=== PATIENT | male | born 1990 | race Caucasian/White ===

== ENCOUNTER 2017-03-19 12:37 | Emergency (ER) | payer BC ==
[2017-03-19 12:58] VITALS: BP 125/64
--- NOTE | 2017-03-19 13:07 | UC ---
Lower Extremity/Ankle HPI - HPI Summary HPI Summary: Twisted L ankle playing basketball 2 days ago. Having lots of medial pain and swelling since then; denies prior sx or fx. Having a lot of difficulty bearing weight. - History of Current Complaint Chief Complaint: UCLowerExtremity Stated Complaint: LEFT ANKLE INJURY Time Seen by Provider: 03/19/17 12:44 Hx Obtained From: Patient Onset/Duration: Sudden Onset Severity Initially: Moderate Severity Currently: Moderate Aggravating Factor(s): Standing, Ambulation Alleviating Factor(s): Rest Able to Bear Weight: Yes - with difficulty - Allergies/Home Medications Allergies/Adverse Reactions: Allergies Allergy/AdvReac Type Severity Reaction Status Date / Time No Known Allergies Allergy Verified 03/19/17 12:50 PMH/Surg Hx/FS Hx/Imm Hx Previously Healthy: Yes - Surgical History Surgical History: Yes Surgery Procedure, Year, and Place: LEFT eye surgery- scar tissue removed 2015 - Family History Known Family History: Positive: Hypertension - Social History Occupation: Employed Full-time - snf Alcohol Use: Occasionally Alcohol Amount: 2 times a week Substance Use Type: None Smoking Status (MU): Never Smoked Tobacco - Immunization History Most Recent Influenza Vaccination: NONE 2015 Most Recent Tetanus Shot: UTD Most Recent Pneumonia Vaccination: N/A Review of Systems Constitutional: Negative Skin: Negative Eyes: Negative ENT: Negative Respiratory: Negative Cardiovascular: Negative Gastrointestinal: Negative Genitourinary: Negative Motor: Negative Neurovascular: Negative Musculoskeletal: Arthralgia - L ankle Neurological: Negative Psychological: Negative All Other Systems Reviewed And Are Negative: Yes Physical Exam Triage Information Reviewed: Yes Appearance: Well-Appearing, Well-Nourished Vital Signs: Initial Vital Signs Temp 98.1 F 03/19/17 12:51 Pulse 64 03/19/17 12:51 Resp 18 03/19/17 12:51 BP 125/64 03/19/17 12:51 Pulse Ox 98 03/19/17 12:51 Vital Signs Reviewed: Yes Eye Exam: Normal, Other - PERRL Eyes: Positive: Conjunctiva Clear ENT Exam: Normal ENT: Positive: Normal ENT inspection, Hearing grossly normal, Pharynx normal, TMs normal Dental Exam: Normal Neck exam: Normal Neck: Positive: Supple, Nontender, No Lymphadenopathy Respiratory Exam: Normal Respiratory: Positive: Chest non-tender, Lungs clear, Normal breath sounds, No respiratory distress, No accessory muscle use Cardiovascular Exam: Normal Cardiovascular: Positive: RRR, No Murmur Musculoskeletal Exam: Other - tender over L medial malleolus Musculoskeletal: Positive: ROM Limited @ - L ankle Neurological Exam: Normal Neurological: Positive: Alert Psychological Exam: Normal Skin Exam: Normal Lower Extremity Course/Dx - Differential Dx/Diagnosis Provider Diagnoses: L ankle medial ankle sprain Discharge - Discharge Plan Condition: Stable Disposition: HOME Prescriptions: Indomethacin CAP* [Indocin CAP*] 50 mg PO TID PRN #30 cap PRN Reason: Pain Patient Education Materials: Ankle Sprain (ED) Forms: *Work Release Referrals: Kathe Mcpherson MD [Primary Care Provider] - Javier Wu MD [Medical Doctor] - 5 Days Additional Instructions: Avoid any extra exercise or weight-bearing until your ankle improves. Please follow up with the orthopedist as we discussed.
--- NOTE | 2017-03-19 13:28 | RAD ---
INDICATION: Left ankle injury. TECHNIQUE: 3 views of the left ankle were obtained. FINDINGS: There is diffuse soft tissue swelling. The bones are in normal alignment. Joint spaces appear maintained. No fracture is seen. IMPRESSION: SOFT TISSUE SWELLING, NO FRACTURE IS SEEN.
== END 2017-03-19 13:55 | disposition home or self-care (01) ==
LOC: UCCORT 12:37
DX: S93.492A Sprain of other ligament of left ankle, initial encounter (principal); X50.9XXA Other and unspecified overexertion or strenuous movements or postures, initial encounter; Y92.9 Unspecified place or not applicable; Y93.67 Activity, basketball
CPT/HCPCS: 99213; G0463

== ENCOUNTER 2017-10-31 13:01 | Emergency (ER) | payer BC ==
[2017-10-31 14:13] VITALS: BP 130/99
[2017-10-31] MEDS ORDERED: Ibuprofen TAB* 600 MG PO ONE (14:16)
[2017-10-31] MEDS ORDERED: Amoxicillin/Clavulanate TAB* 875 MG PO ONE (14:25)
--- NOTE | 2017-10-31 14:51 | RAD ---
INDICATION: Left hand injury COMPARISON: None TECHNIQUE: AP, lateral, and oblique views were obtained. FINDINGS: The bony structures, joint spaces, and soft tissues are normal for age. IMPRESSION: NEGATIVE EXAMINATION.
--- NOTE | 2017-10-31 15:06 | UC ---
Head Injury HPI - HPI Summary HPI Summary: injury to left 5th finger and 5th mc, small abrasion on left 5th mcp joint--( patient could not say for sure that it was not caused by a tooth)(also patient refused tetanus update) - History Of Current Complaint Chief Complaint: UCUpperExtremity Stated Complaint: LEFT LITTLE FINGER INJURY Time Seen by Provider: 10/31/17 14:15 Hx Obtained From: Patient Mechanism Of Injury: hit "something" Onset/Duration: Sudden Onset, Lasting Days - 1, Still Present Severity Currently: Moderate Severity Initially: Moderate Pain Intensity: 9 Pain Scale Used: 0-10 Numeric Character: Throbbing Aggravating Factor(s): Other - touch/movement Alleviating Factor(s): Nothing Associated Signs And Symptoms: Positive: Negative - Allergies/Home Medications Allergies/Adverse Reactions: Allergies Allergy/AdvReac Type Severity Reaction Status Date / Time No Known Allergies Allergy Verified 10/31/17 14:13 PMH/Surg Hx/FS Hx/Imm Hx Previously Healthy: Yes - Surgical History Surgical History: Yes Surgery Procedure, Year, and Place: LEFT eye surgery- scar tissue removed 2015 - Family History Known Family History: Positive: Hypertension - Social History Occupation: Employed Full-time Lives: With Family Alcohol Use: Occasionally Alcohol Amount: 2 times a week Substance Use Type: None Smoking Status (MU): Never Smoked Tobacco - Immunization History Most Recent Influenza Vaccination: NONE 2015 Most Recent Tetanus Shot: UTD Most Recent Pneumonia Vaccination: N/A Review of Systems Constitutional: Negative Skin: Negative Eyes: Negative ENT: Negative Respiratory: Negative Cardiovascular: Negative Gastrointestinal: Negative Genitourinary: Negative Motor: Decreased ROM - left 5th finger mcp Neurovascular: Negative Musculoskeletal: Negative, Arthralgia - left 5th finger and mcp joint Neurological: Negative Psychological: Negative Is Patient Immunocompromised?: No All Other Systems Reviewed And Are Negative: Yes Physical Exam Triage Information Reviewed: Yes Appearance: Well-Appearing, No Pain Distress, Well-Nourished Vital Signs: Initial Vital Signs Temp 98.8 F 10/31/17 14:02 Pulse 96 10/31/17 14:02 Resp 14 10/31/17 14:02 BP 130/99 10/31/17 14:02 Pulse Ox 99 10/31/17 14:02 Vital Signs Reviewed: Yes Eye Exam: Normal Eyes: Positive: Conjunctiva Clear ENT Exam: Normal ENT: Positive: Normal ENT inspection, Hearing grossly normal, Pharynx normal, TMs normal. Negative: Nasal congestion, Nasal drainage, Trismus, Muffled voice , Hoarse voice, Dental tenderness, Sinus tenderness Dental Exam: Normal Neck exam: Normal Neck: Positive: Supple, Nontender, No Lymphadenopathy Respiratory Exam: Normal Respiratory: Positive: Chest non-tender, No respiratory distress, No accessory muscle use Cardiovascular Exam: Normal Cardiovascular: Positive: RRR, Pulses Normal, Brisk Capillary Refill Musculoskeletal Exam: Other Musculoskeletal: Positive: No Edema, Strength Limited @ - left 4/5 finger, ROM Limited @ - left 4/5 finger Neurological Exam: Normal Neurological: Positive: Alert, Muscle Tone Normal Psychological Exam: Normal Skin Exam: Normal Diagnostics - Radiology No standard instances Xray Interpretation: No Acute Changes Radiology Interpretation Completed By: ED Physician, Radiologist Head Injury Course/Dx - Course Course Of Treatment: bharti tape and miriam wrap, augmentin, ibuprofen, warm soaks follow with hand surgeon as needed - Differential Dx/Diagnosis Provider Diagnoses: contusion left hand with abrasion (unknown source) Discharge - Discharge Plan Condition: Stable Disposition: HOME Prescriptions: Amoxicillin/Clavulanate TAB* [Augmentin TAB 875*] 875 mg PO BID #19 tab Patient Education Materials: Ibuprofen (By mouth), Human Bite (ED), Contusion in Adults (ED), R.I.C.E. Treatment (ED) Forms: *Work Release Referrals: Kathe Mcpherson MD [Primary Care Provider] - If Needed Leanne Streeter MD [Medical Doctor] - If Needed
== END 2017-10-31 15:21 | disposition home or self-care (01) ==
LOC: UCCORT 13:01
DX: S60.512A Abrasion of left hand, initial encounter (principal); X58.XXXA Exposure to other specified factors, initial encounter; Y93.9 Activity, unspecified; Y92.9 Unspecified place or not applicable
CPT/HCPCS: 99213; A9270-GY; G0463

== ENCOUNTER 2019-05-29 09:55 | Emergency (ER) | payer BC, OTHER ==
--- OUTSIDE RECORDS SUMMARY | 2019-05-29 10:35 | XMS REPORT | Continuity of Care Document ---
:1990 External Reference #:[id number] Author Name Pawel Clement N.P. 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 Onset: 07/12/2015 Social History Type Date Description Comments Sex Unknown ETOH Use Rarely consumes alcohol Tobacco Use Start: Unknown Patient is a current smoker, smokes every day Smoking Status Reviewed: 11/28/18 Patient is a current smoker, smokes every day Allergies, Adverse Reactions, Alerts Description No Known Drug Allergies Medications Active Medications SIG Qnty Indications Ordering Date Provider Proair HFA inhale 2 puffs by 25.5gm J45.909 Kathe Mcpherson, 11/29/2018 108(90Base) mouth every 4 M.D. mcg/Act Aerosol hours if needed Betamethasone apply to affected 45gm L20.9 Kathe Mcpherson, 12/03/2015 Dipropionate area three times M.D. 0.05% Cream a day as needed Acyclovir use bid-tid 30gm A60.00 Kathe Mcpherson, 10/02/2015 5% Ointment M.D. Famciclovir 1 by mouth every 90tabs A60.00 Kathe Mcpherson, 10/30/2013 500mg Tablets day M.D. Valacyclovir HCL 1 tab by mouth 60tabs A60.00 Kathe McphersonErnie, 07/11/2013 500mg twice a day for M.D. Tablets herpes outbreak Zyrtec Allergy 1 by mouth every 90tabs J30.9 Kathe McphersonErnie, 07/11/2013 10mg day M.D. Tablets Immunizations Description No Information Available Vital Signs Date Vital Result Comment 05/26/2019 10:40am BP Systolic 140 mmHg BP Diastolic 68 mmHg Height 71 inches 5'11" Weight 175.00 lb BMI (Body Mass Index) 24.4 kg/m2 Heart Rate 64 /min Respiratory Rate 16 /min 11/29/2018 10:10am BP Systolic 124 mmHg BP Diastolic 68 mmHg Height 71 inches 5'11" Weight 181.00 lb BMI (Body Mass Index) 25.2 kg/m2 Heart Rate 63 /min Respiratory Rate 18 /min Results Description No Information Available Procedures Description No Information Available Medical Devices Description No Information Available Encounters Type Date Location Provider Dx Diagnosis Office Visit 05/26/2019 [facility] Abiel [id number] Unspecified asthma, 10:30a N.P. uncomplicated D57.3 Sickle-cell trait H54.52A2 Low vision left eye category 2, normal vision right eye L20.9 Atopic dermatitis, unspecified J30.9 Allergic rhinitis, unspecified A60.00 Herpesviral infection of urogenital system, unspecified F12.10 Cannabis abuse, uncomplicated F17.210 Nicotine dependence, cigarettes, uncomplicated M71.38 Other bursal cyst, other site Z28.21 Immunization not carried out because of patient refusal Office Visit 11/29/2018 10:00a [facility] Kathe Mcpherson J45.909 Unspecified asthma, MErnie, Kalyn uncomplicated D57.3 Sickle-cell trait H54.52A2 Low vision left eye category 2, normal vision right eye L20.9 Atopic dermatitis, unspecified J30.9 Allergic rhinitis, unspecified A60.00 Herpesviral infection of urogenital system, unspecified F12.10 Cannabis abuse, uncomplicated F17.210 Nicotine dependence, cigarettes, uncomplicated M71.38 Other bursal cyst, other site Assessments Date Code Description Provider 05/26/2019 [id number] Unspecified asthma, uncomplicated Pawel Clement, N.P. 05/26/2019 D57.3 Sickle-cell trait Pawel Clement, N.P. 05/26/2019 H54.52A2 Low vision left eye category 2, normal Pawel Clement, N.P. vision right eye 05/26/2019 L20.9 Atopic dermatitis, unspecified Pawel Clement, N.P. 05/26/2019 J30.9 Allergic rhinitis, unspecified Pawel Clement, N.P. 05/26/2019 A60.00 Herpesviral infection of urogenital system, Pawel Clement , N.P. unspecified 05/26/2019 F12.10 Cannabis abuse, uncomplicated Pawel Clement, N.P. 05/26/2019 F17.210 Nicotine dependence, cigarettes, Pawel Clement, N.P. uncomplicated 05/26/2019 M71.38 Other bursal cyst, other site Pawel Clement, N.P. 05/26/2019 Z28.21 Immunization not carried out because of Pawel Clement N.P. patient refusal 05/25/2019 J45.909 Unspecified asthma, uncomplicated Kathe Mcpherson M.D. 05/25/2019 D57.3 Sickle-cell trait Kathe Mcpherson M.D. 05/25/2019 H54.52A2 Low vision left eye category 2, normal Kathe Mcpherson M.D. vision right eye 05/25/2019 L20.9 Atopic dermatitis, unspecified Kathe Mcpherson M.D. 05/25/2019 J30.9 Allergic rhinitis, unspecified Kathe Mcpherson M.D. 05/25/2019 A60.00 Herpesviral infection of urogenital system, Kathe Mcpherson M.D. unspecified 05/25/2019 F12.10 Cannabis abuse, uncomplicated Kathe Mcpherson M.D. 05/25/2019 F17.210 Nicotine dependence, cigarettes, Kathe Mcpherson M.D. uncomplicated 05/25/2019 M71.38 Other bursal cyst, other site Kathe Mcpherson M.D. 11/29/2018 J45.909 Unspecified asthma, uncomplicated Kathe Mcpherson M.D. 11/29/2018 D57.3 Sickle-cell trait Kathe Mcpherson M.D. 11/29/2018 H54.52A2 Low vision left eye category 2, normal Kathe Mcpherson M.D. vision right eye 11/29/2018 L20.9 Atopic dermatitis, unspecified Kathe Mcpherson M.D. 11/29/2018 J30.9 Allergic rhinitis, unspecified Kathe Mcpherson M.D. 11/29/2018 A60.00 Herpesviral infection of urogenital system, Kathe Mcpherson M.D. unspecified 11/29/2018 F12.10 Cannabis abuse, uncomplicated Kathe Mcpherson M.D. 11/29/2018 F17.210 Nicotine dependence, cigarettes, Kathe Mcpherson M.D. uncomplicated 11/29/2018 M71.38 Other bursal cyst, other site Kathe Mcpherson M.D. Plan of Treatment No Information Available Functional Status Functional Condition Comment Date Status .None Active Mental Status Description No Information Available Referrals Refer to Reason for Referral Status Appt Date Javier Wu M.D 01/19/2019 [facility] [place] [address] [phone]
[2019-05-29 11:00] VITALS: BP 139/93
--- NOTE | 2019-05-29 11:24 | UC ---
General HPI - HPI Summary HPI Summary: pt accidentally shut his R thumb in a heavy security door yesterday while at work. he noted some bleeding, blood under the nail plus some fat came from under the tip of his nail. no limited rom. no fever or redness. last tetanus is not known. - History of Current Complaint Chief Complaint: UCUpperExtremity Stated Complaint: THUMB INJ Time Seen by Provider: 05/29/19 11:15 Hx Obtained From: Patient Onset/Duration: Sudden Onset Timing: Constant Pain Intensity: 5 Associated Signs & Symptoms: Negative: Weakness - Allergy/Home Medications Allergies/Adverse Reactions: Allergies Allergy/AdvReac Type Severity Reaction Status Date / Time No Known Allergies Allergy Verified 05/29/19 10:54 Home Medications: Home Medications NK [No Home Medications Reported] 05/29/19 [History Confirmed 05/29/19] PMH/Surg Hx/FS Hx/Imm Hx Previously Healthy: Yes - Surgical History Surgical History: Yes Surgery Procedure, Year, and Place: LEFT eye surgery- scar tissue removed 2015 - Family History Known Family History: Positive: Hypertension - Social History Occupation: Employed Full-time Alcohol Use: Occasionally Alcohol Amount: 2 times a week Substance Use Type: None Smoking Status (MU): Never Smoked Tobacco - Immunization History Most Recent Influenza Vaccination: NONE 2015 Most Recent Tetanus Shot: UTD Most Recent Pneumonia Vaccination: N/A Review of Systems All Other Systems Reviewed And Are Negative: No Constitutional: Negative: Fever Skin: Negative: Rash Musculoskeletal: Negative: Decreased ROM Neurological: Negative: Weakness, Paresthesia Physical Exam Triage Information Reviewed: Yes Appearance: Well-Appearing Vital Signs: Initial Vital Signs Temp 98.6 F 05/29/19 10:54 Pulse 74 05/29/19 10:54 Resp 16 05/29/19 10:54 BP 139/93 05/29/19 10:54 Pulse Ox 100 05/29/19 10:54 Vital Signs Reviewed: Yes Cardiovascular: Positive: RRR Musculoskeletal: Positive: Other: - R hand= tip of thumb=subungual hematoma and scant dry blood. tip of thumb is tender with a tiny piece of fat protruding from under the nail through a small laceration(0.5cm) at junction of distal nail and thumb. thumb has gross s/v/m function. no erythema or streaking. rest of hand is unremarkable. Neurological: Positive: Alert Psychological: Positive: Age Appropriate Behavior Skin Exam: Normal Diagnostics - Radiology No standard instances Radiology Interpretation Completed By: Radiologist - IMPRESSION: NO EVIDENCE FOR FRACTURE. Course/Dx - Course Course Of Treatment: pt advised he may lose the thumb nail or even have a nail deformity from this injury. pt refusing a tetanus shot citing will call his pcp to see if due and then get it there if necessary. Procedure: time out. thumb already soaked by myself in warm - soapy water then dried. prep betadine. small hole burned into nail, blood drained resulting in less pain and smaller hematoma. tiny fat tucked back under nail and that 0.5cm laceration was closed with 2 steristrips after site prep with Mastisol. pt tolerated all well. bandaide applied to tip ensuring to avoid steristrips. aluminum foam splint applied to tip of thumb for comfort only(no fx). - Differential Dx - Multi-Symptom Differential Diagnoses: Other - no fx. no concern for infection. - Diagnoses Provider Diagnosis: Subungual hematoma of right thumb, Nailbed laceration, finger Discharge ED - Sign-Out/Discharge Documenting (check all that apply): Patient Departure All imaging exams completed and their final reports reviewed: No Studies - Discharge Plan Condition: Stable Disposition: HOME Patient Education Materials: Subungual Hematoma (ED), Steristrips (ED) Forms: *Work Release Referrals: Jackson Stevens MD [Medical Doctor] - 7 Days Additional Instructions: WEAR THE SPLINT NEEDED FOR COMFORT. - Billing Disposition and Condition Condition: STABLE Disposition: Home
[2019-05-29] MEDS ORDERED: Tetan/Diph/Pertus SYR(Tdap)* 0.5 ML SYR(BOOSTRIX) use SYR contains LATEX IM ONE (11:26)
[2019-05-29] MEDS ORDERED: Ibuprofen ADULT LIQ* 600 MG/30 ML UDC PO ONE (11:53)
== END 2019-05-29 11:58 | disposition home or self-care (01) ==
LOC: UCCORT 09:55
DX: S60.111A Contusion of right thumb with damage to nail, initial encounter (principal); W23.0XXA Caught, crushed, jammed, or pinched between moving objects, initial encounter; Y93.89 Activity, other specified; Y92.89 Other specified places as the place of occurrence of the external cause; Y99.0 Civilian activity done for income or pay
CPT/HCPCS: 11740; 90715; 99212; A9270-GY; G0463